=== PATIENT | female | born 1950 | race Caucasian/White ===

== ENCOUNTER 2018-07-10 08:02 | Outpatient (CLI) | payer MEDICARE ==
--- NOTE | 2018-07-10 08:53 | MMO ---
Bilateral MAMMO Bilat Screen [facility]. CLINICAL HISTORY: Patient is 67 years old and is seen for screening. The patient has no family history of breast cancer. The patient has no personal history of cancer. VIEWS: The views performed were: bilateral craniocaudal with tomosynthesis and bilateral mediolateral oblique with tomosynthesis. MAMMOGRAM FINDINGS: There are scattered fibroglandular densities. There are benign appearing calcifications seen in both breasts. There are no suspicious masses, suspicious calcifications, or new areas of architectural distortion. IMPRESSION: THERE IS NO MAMMOGRAPHIC EVIDENCE OF MALIGNANCY. A ROUTINE FOLLOW-UP MAMMOGRAM IN 1 YEAR IS RECOMMENDED. THE RESULTS OF THIS EXAM WERE SENT TO THE PATIENT. ACR BI-RADS Category 2 - Benign finding MAMMOGRAPHY NOTE: 1. A negative mammogram report should not delay a biopsy if a dominant of clinically suspicious mass is present. 2. Approximately 10% to 15% of breast cancers are not detected by mammography. 3. Adenosis and dense breasts may obscure an underlying neoplasm.
--- NOTE | 2018-07-10 09:15 | BD ---
BONE DENSITOMETRY USING DEXA: Date: 07/10/18 HISTORY: Postmenopausal screening for osteoporosis. FINDINGS: Lumbar Spine: BMD (g/cm2) L1 0.998 T-Score: 0.1 Z-Score: 1.9 L2 1.045 T-Score: 0.2 Z-Score: 2.1 L3 1.213 T-Score: 1.2 Z-Score: 3.3 L4 1.062 T-Score: 0.9 Z-Score: 2.2 L1-L4 1.081 T-Score: 0.3 Z-Score: 2.3 Femoral Neck: 0.753 T-Score: -0.9 Z-Score: 0.9 Total Femur: 1.054 T-Score: 0.9 Z-Score: 2.3 IMPRESSION: Normal bone mineral density. No evidence of osteopenia/osteoporosis. POS: [facility]
== END 2018-07-10 08:03 | disposition home or self-care (01) ==
LOC: BICMAMMO 08:02
PROVIDERS: ATTEND Family Medicine
DX: Z12.31 Encounter for screening mammogram for malignant neoplasm of breast (principal); Z13.820 Encounter for screening for osteoporosis; Z78.0 Asymptomatic menopausal state
CPT/HCPCS: 77063; 77067; 77080

== ENCOUNTER 2020-10-13 12:48 | Inpatient (IN) | payer MEDICARE ==
[2020-10-13 14:09] LABS: #Lymphocytes 0.5 thou/uL (1.20-3.40); #Monocytes 0.6 thou/uL (0.11-0.59); #Neutrophils 7.6 thou/uL (1.40-6.50); %Basophils 0.2 % (0.0-1.0); %Eosinophils 0.2 % (0.0-10.0); %Lymphocytes 6.1 % (21.0-51.0); %Monocytes 6.9 % (0.0-10.0); %Neutrophils 86.6 % (42.0-75.0); Hemoglobin 13.3 g/dL (12.0-16.0); Mean Corpuscular HGB CONC 34.7 g/dL (32.0-36.0); Mean Corpuscular Volume 80.9 fL (78.0-98.0); Platelet Count 251 thou/uL (130-400); RBC Distribution Width 12.3 % (11.5-14.5); Red Blood Cell (RBC) Count 4.74 mill/uL (4.20-5.40); White Blood Cell (WBC) Count 8.7 thou/uL (4.8-10.8)
[2020-10-13 14:58] LABS: ALT (SGPT) 75 U/L (8-55); AST (SGOT) 112 U/L (5-34); Albumin 3.6 g/dL (3.4-4.8); Alkaline Phosphatase 65 U/L (40-110); Anion Gap 18 mmol/L (10-20); BUN (Urea Nitrogen) 12 mg/dL (9.8-20.1); Bilirubin, Total 1.1 mg/dL (0.2-1.2); Calc. Creatinine Clearance 0 mL/min (70-130); Calcium 8.4 mg/dL (7.8-10.44); Carbon Dioxide 17 mmol/L (23-31); Chloride 80 mmol/L (98-107); Globulin 2.5 g/dL (2.4-3.5); Glucose 136 mg/dL (80-115); Potassium 3.3 mmol/L (3.5-5.1); Protein, Total 6.1 g/dL (5.8-8.1)
[2020-10-13 15:06] LABS: Sodium 112 mmol/L (136-145)
[2020-10-13] MEDS ORDERED: Potassium Chloride 20 MEQ TAB ONE ×2 (15:13→15:14)
[2020-10-13] MEDS ORDERED: Dexamethasone 10 MG/ML VIAL ONE (15:15)
[2020-10-13 16:00] LABS: SARS-CoV-2 NAA Rapid Test DETECTED (NotDetected)
[2020-10-13] MEDS ORDERED: Ondansetron PF 4 MG/2 ML Vial IVP PRN (19:17)
[2020-10-13] MEDS ORDERED: Ondansetron ODT 4 MG TAB PO PRN (19:17)
[2020-10-13] MEDS ORDERED: Enoxaparin Sodium 40 MG/0.4 ML SYRINGE SC SCH (19:30)
[2020-10-13] MEDS ORDERED: Sodium Chloride 3% 100 ML IVPB SCH (20:15)
[2020-10-13] MEDS ORDERED: Azithromycin 500 MG in Sodium Chloride 0.9% 250 ML 250 ML IVPB SCH (20:30)
[2020-10-13 20:31] LABS: Anion Gap 17 mmol/L (10-20); BUN (Urea Nitrogen) 9 mg/dL (9.8-20.1); Calc. Creatinine Clearance 0 mL/min (70-130); Calcium 8.2 mg/dL (7.8-10.44); Carbon Dioxide 18 mmol/L (23-31); Chloride 81 mmol/L (98-107); Glucose 102 mg/dL (80-115); Magnesium 1.7 mg/dL (1.6-2.6); Phosphorus 2.5 mg/dL (2.3-4.7); Potassium 3.5 mmol/L (3.5-5.1)
[2020-10-13] MEDS ORDERED: Azithromycin 500 MG VIAL ONE (20:34)
[2020-10-13] MEDS ORDERED: Famotidine 20 MG TAB ONE (20:34)
[2020-10-13] MEDS: Famotidine 20 MG TAB PO SCH (20:38)
[2020-10-13] MEDS: Famotidine/PF 20 mg/2ml Vial SLOW IVP SCH (20:39)
[2020-10-13 20:41] LABS: Sodium 112 mmol/L (136-145)
[2020-10-13] MEDS: Melatonin 3 MG TAB PO SCH (20:42)
[2020-10-13 22:17] LABS: Anion Gap 14 mmol/L (10-20); BUN (Urea Nitrogen) 11 mg/dL (9.8-20.1); Calc. Creatinine Clearance 0 mL/min (70-130); Carbon Dioxide 19 mmol/L (23-31); Chloride 83 mmol/L (98-107); Glucose 138 mg/dL (80-115); Potassium 3.3 mmol/L (3.5-5.1)
[2020-10-13 22:25] LABS: Sodium 113 mmol/L (136-145)
[2020-10-13] MEDS: Potassium Chloride 20 MEQ in Premix Bag 1 BAG IVPB SCH (22:53)
[2020-10-14] MEDS: Potassium Chloride 20 MEQ in Premix Bag 1 BAG IVPB SCH (00:15)
[2020-10-14 00:53] LABS: Bilirubin Negative (Negative); Blood, Urine Negative (Negative); Clarity Clear (Clear); Glucose, Urine (Dipstick) Normal (Negative); Ketone, Urine 20 mg/dL (Negative); Leukocyte 75 Leu/uL (Negative); Nitrite Negative (Negative); Protein, Urine (Dipstick) 20 mg/dL (Neg-Trace); RBC/HPF 0-3 HPF (0-3); Specific Gravity, Urine 1.016 (1.002-1.036); Squamous Epithelial 0-3 HPF (0-3); Urobilinogen Normal mg/dL (Less than 2)
[2020-10-14 00:54] LABS: Bacteria/HPF Rare-Few HPF (None Seen)
[2020-10-14 01:06] LABS: Anion Gap 14 mmol/L (10-20); BUN (Urea Nitrogen) 10 mg/dL (9.8-20.1); Calc. Creatinine Clearance 107 mL/min (70-130); Calcium 8.2 mg/dL (7.8-10.44); Carbon Dioxide 20 mmol/L (23-31); Chloride 84 mmol/L (98-107); Glucose 105 mg/dL (80-115); Potassium 3.7 mmol/L (3.5-5.1)
[2020-10-14 01:10] LABS: Sodium 114 mmol/L (136-145)
[2020-10-14 04:23] LABS: ALT (SGPT) 65 U/L (8-55); AST (SGOT) 90 U/L (5-34); Albumin 3.1 g/dL (3.4-4.8); Alkaline Phosphatase 66 U/L (40-110); Anion Gap 14 mmol/L (10-20); BUN (Urea Nitrogen) 9 mg/dL (9.8-20.1); Bilirubin, Total 0.9 mg/dL (0.2-1.2); Calc. Creatinine Clearance 104 mL/min (70-130); Calcium 8.4 mg/dL (7.8-10.44); Carbon Dioxide 20 mmol/L (23-31); Chloride 87 mmol/L (98-107); Globulin 2.7 g/dL (2.4-3.5); Glucose 99 mg/dL (80-115); Potassium 3.7 mmol/L (3.5-5.1); Protein, Total 5.8 g/dL (5.8-8.1)
[2020-10-14 04:27] LABS: Sodium 117 mmol/L (136-145)
[2020-10-14 04:36] LABS: Band 6 % (5-11); Hemoglobin 12.7 g/dL (12.0-16.0); Lymphocytes 9 % (21-51); MDiff Complete? YES; Mean Corpuscular HGB CONC 34.9 g/dL (32.0-36.0); Mean Corpuscular Hemoglobin 28.4 pg (27.0-31.0); Mean Corpuscular Volume 81.4 fL (78.0-98.0); Mean Platelet Volume 8.1 fL (7.4-10.4); Monocytes 5 % (0-10); Neutrophil 80 % (42-75); Platelet Count 232 thou/uL (130-400); RBC Distribution Width 12.4 % (11.5-14.5); Red Blood Cell (RBC) Count 4.48 mill/uL (4.20-5.40); White Blood Cell (WBC) Count 7.4 thou/uL (4.8-10.8)
[2020-10-14] MEDS ORDERED: Sodium Chloride 1 GM TAB PO SCH (09:00)
[2020-10-14] MEDS ORDERED: cefTRIAXone\\ROCEPHIN 1 GM in Sodium Chloride 0.9% 100 ML IVPB SCH (09:00)
[2020-10-14] MEDS ORDERED: Torsemide 10 MG TAB PO SCH (09:00)
[2020-10-14 09:08] LABS: Anion Gap 15 mmol/L (10-20); BUN (Urea Nitrogen) 8 mg/dL (9.8-20.1); Calc. Creatinine Clearance 106 mL/min (70-130); Calcium 8.4 mg/dL (7.8-10.44); Carbon Dioxide 20 mmol/L (23-31); Chloride 91 mmol/L (98-107); Glucose 98 mg/dL (80-115); Potassium 3.9 mmol/L (3.5-5.1); Sodium 122 mmol/L (136-145)
[2020-10-14] MEDS: Dexamethasone Sod Phosphate 8 MG in Sodium Chloride 0.9% 50 ML IVPB SCH (09:25)
[2020-10-14] MEDS: Famotidine 20 MG TAB PO SCH ×2 (09:26→20:50)
[2020-10-14] MEDS: Famotidine/PF 20 mg/2ml Vial SLOW IVP SCH ×2 (09:26→20:52)
[2020-10-14] MEDS: Enoxaparin Sodium 40 MG/0.4 ML SYRINGE SC SCH (09:27)
[2020-10-14] MEDS ORDERED: Dextrose 5% in Water 1,000 ML IV SCH ×3 (09:30→14:30)
[2020-10-14 12:39] LABS: Anion Gap 16 mmol/L (10-20); BUN (Urea Nitrogen) 8 mg/dL (9.8-20.1); Calc. Creatinine Clearance 96 mL/min (70-130); Calcium 8.6 mg/dL (7.8-10.44); Carbon Dioxide 19 mmol/L (23-31); Chloride 93 mmol/L (98-107); Glucose 133 mg/dL (80-115); Potassium 3.9 mmol/L (3.5-5.1); Sodium 124 mmol/L (136-145)
[2020-10-14 16:32] LABS: Anion Gap 14 mmol/L (10-20); BUN (Urea Nitrogen) 9 mg/dL (9.8-20.1); Calc. Creatinine Clearance 90 mL/min (70-130); Calcium 8.5 mg/dL (7.8-10.44); Carbon Dioxide 20 mmol/L (23-31); Chloride 93 mmol/L (98-107); Glucose 191 mg/dL (80-115); Potassium 3.8 mmol/L (3.5-5.1); Sodium 123 mmol/L (136-145)
[2020-10-14 20:35] LABS: Anion Gap 14 mmol/L (10-20); BUN (Urea Nitrogen) 10 mg/dL (9.8-20.1); Calc. Creatinine Clearance 89 mL/min (70-130); Calcium 8.7 mg/dL (7.8-10.44); Carbon Dioxide 22 mmol/L (23-31); Chloride 94 mmol/L (98-107); Glucose 144 mg/dL (80-115); Potassium 3.9 mmol/L (3.5-5.1); Sodium 126 mmol/L (136-145)
[2020-10-14] MEDS: Melatonin 3 MG TAB PO SCH (20:50)
[2020-10-15 01:11] LABS: Anion Gap 14 mmol/L (10-20); BUN (Urea Nitrogen) 9 mg/dL (9.8-20.1); Calc. Creatinine Clearance 96 mL/min (70-130); Calcium 8.6 mg/dL (7.8-10.44); Carbon Dioxide 22 mmol/L (23-31); Chloride 96 mmol/L (98-107); Glucose 131 mg/dL (80-115); Potassium 3.9 mmol/L (3.5-5.1); Sodium 128 mmol/L (136-145)
[2020-10-15 03:45] LABS: Band 1 % (5-11); Hemoglobin 12.8 g/dL (12.0-16.0); Lymphocytes 12 % (21-51); MDiff Complete? YES; Mean Corpuscular HGB CONC 34.6 g/dL (32.0-36.0); Mean Corpuscular Hemoglobin 28.7 pg (27.0-31.0); Mean Corpuscular Volume 83.1 fL (78.0-98.0); Mean Platelet Volume 8.2 fL (7.4-10.4); Monocytes 4 % (0-10); Neutrophil 83 % (42-75); Platelet Count 259 thou/uL (130-400); Platelet Morphology Comment Appears Adequate; RBC Distribution Width 12.9 % (11.5-14.5); Red Blood Cell (RBC) Count 4.47 mill/uL (4.20-5.40); White Blood Cell (WBC) Count 5.2 thou/uL (4.8-10.8)
[2020-10-15 03:57] LABS: ALT (SGPT) 60 U/L (8-55); AST (SGOT) 55 U/L (5-34); Albumin 3.2 g/dL (3.4-4.8); Alkaline Phosphatase 77 U/L (40-110); Anion Gap 13 mmol/L (10-20); BUN (Urea Nitrogen) 10 mg/dL (9.8-20.1); Bilirubin, Total 0.6 mg/dL (0.2-1.2); Calc. Creatinine Clearance 94 mL/min (70-130); Calcium 8.7 mg/dL (7.8-10.44); Carbon Dioxide 23 mmol/L (23-31); Chloride 97 mmol/L (98-107); Glucose 117 mg/dL (80-115); Potassium 3.8 mmol/L (3.5-5.1); Protein, Total 6.2 g/dL (5.8-8.1); Sodium 129 mmol/L (136-145)
[2020-10-15] MEDS: Famotidine 20 MG TAB PO SCH ×2 (08:05→20:28)
[2020-10-15] MEDS: Ascorbic Acid 500 mg Chewable Tablet PO SCH (08:05)
[2020-10-15] MEDS: Famotidine/PF 20 mg/2ml Vial SLOW IVP SCH ×2 (08:05→20:29)
[2020-10-15] MEDS: Enoxaparin Sodium 40 MG/0.4 ML SYRINGE SC SCH (08:05)
[2020-10-15] MEDS: Cholecalciferol (Vitamin D3) 400 UNITS TAB PO SCH (08:05)
[2020-10-15] MEDS: Dexamethasone Sod Phosphate 8 MG in Sodium Chloride 0.9% 50 ML IVPB SCH (08:05)
[2020-10-15] MEDS: Zinc Sulfate 220 MG CAP PO SCH (08:05)
[2020-10-15 15:32] LABS: Anion Gap 14 mmol/L (10-20); BUN (Urea Nitrogen) 11 mg/dL (9.8-20.1); Calc. Creatinine Clearance 91 mL/min (70-130); Calcium 8.7 mg/dL (7.8-10.44); Carbon Dioxide 22 mmol/L (23-31); Chloride 98 mmol/L (98-107); Glucose 176 mg/dL (80-115); Potassium 3.7 mmol/L (3.5-5.1); Sodium 130 mmol/L (136-145)
[2020-10-15] MEDS ORDERED: PARoxetine 20 MG TAB PO SCH (18:15)
[2020-10-15] MEDS: Melatonin 3 MG TAB PO SCH (20:29)
[2020-10-15] MEDS: Benzonatate 100 MG CAP PO PRN (21:25)
[2020-10-15] MEDS: Guaifenesin DM 100-10/5 ML UDCUP PO PRN (21:25)
[2020-10-16] MEDS: Guaifenesin DM 100-10/5 ML UDCUP PO PRN ×3 (04:45→17:09)
[2020-10-16] MEDS: Benzonatate 100 MG CAP PO PRN ×3 (04:46→21:46)
[2020-10-16 06:11] LABS: Eosinophils 1 % (0-10); Hemoglobin 12.8 g/dL (12.0-16.0); Lymphocytes 11 % (21-51); MDiff Complete? YES; Mean Corpuscular HGB CONC 34.9 g/dL (32.0-36.0); Mean Corpuscular Hemoglobin 29.3 pg (27.0-31.0); Mean Corpuscular Volume 83.9 fL (78.0-98.0); Mean Platelet Volume 7.7 fL (7.4-10.4); Monocytes 12 % (0-10); Neutrophil 76 % (42-75); Platelet Count 344 thou/uL (130-400); Platelet Morphology Comment Appears Adequate; RBC Distribution Width 12.8 % (11.5-14.5); Red Blood Cell (RBC) Count 4.36 mill/uL (4.20-5.40); White Blood Cell (WBC) Count 8.5 thou/uL (4.8-10.8)
[2020-10-16 06:23] LABS: ALT (SGPT) 72 U/L (8-55); AST (SGOT) 54 U/L (5-34); Albumin 3.4 g/dL (3.4-4.8); Alkaline Phosphatase 100 U/L (40-110); Anion Gap 12 mmol/L (10-20); BUN (Urea Nitrogen) 10 mg/dL (9.8-20.1); Bilirubin, Total 0.7 mg/dL (0.2-1.2); Calc. Creatinine Clearance 101 mL/min (70-130); Calcium 8.6 mg/dL (7.8-10.44); Carbon Dioxide 24 mmol/L (23-31); Chloride 98 mmol/L (98-107); Globulin 2.8 g/dL (2.4-3.5); Glucose 130 mg/dL (80-115); Potassium 3.5 mmol/L (3.5-5.1); Protein, Total 6.2 g/dL (5.8-8.1); Sodium 130 mmol/L (136-145)
[2020-10-16] MEDS: Dexamethasone Sod Phosphate 8 MG in Sodium Chloride 0.9% 50 ML IVPB SCH (07:59)
[2020-10-16] MEDS: Zinc Sulfate 220 MG CAP PO SCH (07:59)
[2020-10-16] MEDS: Ascorbic Acid 500 mg Chewable Tablet PO SCH (07:59)
[2020-10-16] MEDS: Famotidine/PF 20 mg/2ml Vial SLOW IVP SCH ×2 (08:00→21:46)
[2020-10-16] MEDS: Enoxaparin Sodium 40 MG/0.4 ML SYRINGE SC SCH (08:00)
[2020-10-16] MEDS: Famotidine 20 MG TAB PO SCH ×2 (08:00→21:46)
[2020-10-16] MEDS: Cholecalciferol (Vitamin D3) 400 UNITS TAB PO SCH (08:00)
[2020-10-16] MEDS: PARoxetine 20 MG TAB PO SCH (08:00)
[2020-10-16] MEDS: Losartan 25 MG TAB PO SCH (08:54)
[2020-10-16] MEDS ORDERED: NIFEdipine XL 60 MG TAB PO SCH ×2 (13:36→13:45)
[2020-10-16] MEDS ORDERED: Potassium Chloride 20 MEQ TAB PO SCH (13:45)
[2020-10-16] MEDS: hydrALAZINE 20 MG/ML VIAL SLOW IVP PRN (17:16)
[2020-10-16] MEDS: Melatonin 3 MG TAB PO SCH (21:46)
[2020-10-17] MEDS: hydrALAZINE 20 MG/ML VIAL SLOW IVP PRN (05:32)
[2020-10-17 06:47] LABS: Hemoglobin 13.4 g/dL (12.0-16.0); Lymphocytes 8 % (21-51); MDiff Complete? YES; Mean Corpuscular HGB CONC 33.7 g/dL (32.0-36.0); Mean Corpuscular Hemoglobin 28.4 pg (27.0-31.0); Mean Corpuscular Volume 84.1 fL (78.0-98.0); Mean Platelet Volume 7.1 fL (7.4-10.4); Metamyelocyte 2 % (0-0); Monocytes 8 % (0-10); Neutrophil 82 % (42-75); Platelet Count 441 thou/uL (130-400); Platelet Morphology Comment Appears Increased; RBC Distribution Width 12.8 % (11.5-14.5); Red Blood Cell (RBC) Count 4.71 mill/uL (4.20-5.40); White Blood Cell (WBC) Count 12.9 thou/uL (4.8-10.8)
[2020-10-17 07:03] LABS: ALT (SGPT) 94 U/L (8-55); AST (SGOT) 51 U/L (5-34); Albumin 3.4 g/dL (3.4-4.8); Alkaline Phosphatase 109 U/L (40-110); Anion Gap 14 mmol/L (10-20); BUN (Urea Nitrogen) 8 mg/dL (9.8-20.1); Bilirubin, Total 0.8 mg/dL (0.2-1.2); Calc. Creatinine Clearance 109 mL/min (70-130); Calcium 8.8 mg/dL (7.8-10.44); Carbon Dioxide 22 mmol/L (23-31); Chloride 97 mmol/L (98-107); Globulin 3.1 g/dL (2.4-3.5); Glucose 137 mg/dL (80-115); Potassium 3.9 mmol/L (3.5-5.1); Protein, Total 6.5 g/dL (5.8-8.1); Sodium 129 mmol/L (136-145)
[2020-10-17 07:07] LABS: Phosphorus 2.4 mg/dL (2.3-4.7)
[2020-10-17] MEDS: Cholecalciferol (Vitamin D3) 400 UNITS TAB PO SCH (08:31)
[2020-10-17] MEDS: Losartan 25 MG TAB PO SCH (08:31)
[2020-10-17] MEDS: Famotidine 20 MG TAB PO SCH ×2 (08:31→22:08)
[2020-10-17] MEDS: Dexamethasone Sod Phosphate 8 MG in Sodium Chloride 0.9% 50 ML IVPB SCH (08:31)
[2020-10-17] MEDS: Bisacodyl 5 MG TAB PO PRN (08:31)
[2020-10-17] MEDS: Zinc Sulfate 220 MG CAP PO SCH (08:32)
[2020-10-17] MEDS: Ascorbic Acid 500 mg Chewable Tablet PO SCH (08:32)
[2020-10-17] MEDS: Guaifenesin DM 100-10/5 ML UDCUP PO PRN (08:32)
[2020-10-17] MEDS: Enoxaparin Sodium 40 MG/0.4 ML SYRINGE SC SCH (08:32)
[2020-10-17] MEDS: Famotidine/PF 20 mg/2ml Vial SLOW IVP SCH ×2 (08:32→22:08)
[2020-10-17] MEDS: Benzonatate 100 MG CAP PO PRN (08:32)
[2020-10-17] MEDS: PARoxetine 20 MG TAB PO SCH (08:32)
[2020-10-17] MEDS ORDERED: NIFEdipine XL 60 MG TAB PO SCH (09:00)
[2020-10-17] MEDS: NIFEdipine XL 90 MG TAB PO SCH (09:07)
[2020-10-17 14:27] LABS: Anion Gap 14 mmol/L (10-20); BUN (Urea Nitrogen) 11 mg/dL (9.8-20.1); Calc. Creatinine Clearance 93 mL/min (70-130); Calcium 9.4 mg/dL (7.8-10.44); Carbon Dioxide 22 mmol/L (23-31); Chloride 96 mmol/L (98-107); Glucose 209 mg/dL (80-115); Potassium 4.3 mmol/L (3.5-5.1); Sodium 128 mmol/L (136-145)
[2020-10-17] MEDS: Sodium Chloride 1 GM TAB PO SCH ×2 (15:51→22:08)
[2020-10-17] MEDS: Zolpidem Tartrate 5 MG TAB PO SCH (22:08)
[2020-10-18 07:13] LABS: ALT (SGPT) 78 U/L (8-55); AST (SGOT) 38 U/L (5-34); Albumin 3.2 g/dL (3.4-4.8); Alkaline Phosphatase 99 U/L (40-110); Anion Gap 13 mmol/L (10-20); BUN (Urea Nitrogen) 16 mg/dL (9.8-20.1); Bilirubin, Total 0.7 mg/dL (0.2-1.2); Calc. Creatinine Clearance 86 mL/min (70-130); Carbon Dioxide 20 mmol/L (23-31); Chloride 101 mmol/L (98-107); Globulin 2.6 g/dL (2.4-3.5); Glucose 106 mg/dL (80-115); Potassium 4.3 mmol/L (3.5-5.1); Protein, Total 5.8 g/dL (5.8-8.1); Sodium 130 mmol/L (136-145)
[2020-10-18 07:25] LABS: Hemoglobin 12.8 g/dL (12.0-16.0); Mean Corpuscular HGB CONC 32.3 g/dL (32.0-36.0); Mean Corpuscular Hemoglobin 27.4 pg (27.0-31.0); Mean Corpuscular Volume 84.8 fL (78.0-98.0); Mean Platelet Volume 6.7 fL (7.4-10.4); Platelet Count 466 thou/uL (130-400); RBC Distribution Width 13.2 % (11.5-14.5); Red Blood Cell (RBC) Count 4.69 mill/uL (4.20-5.40); White Blood Cell (WBC) Count 13.1 thou/uL (4.8-10.8)
[2020-10-18 09:39] LABS: Band 6 % (5-11); Lymphocytes 16 % (21-51); Monocytes 15 % (0-10); Neutrophil 63 % (42-75)
[2020-10-18] MEDS: Enoxaparin Sodium 40 MG/0.4 ML SYRINGE SC SCH (09:43)
[2020-10-18] MEDS: Dexamethasone Sod Phosphate 8 MG in Sodium Chloride 0.9% 50 ML IVPB SCH (09:43)
[2020-10-18] MEDS: Zinc Sulfate 220 MG CAP PO SCH (09:44)
[2020-10-18] MEDS: Cholecalciferol (Vitamin D3) 400 UNITS TAB PO SCH (09:44)
[2020-10-18] MEDS: Sodium Chloride 1 GM TAB PO SCH ×3 (09:44→20:45)
[2020-10-18] MEDS: Losartan 25 MG TAB PO SCH (09:44)
[2020-10-18] MEDS: NIFEdipine XL 90 MG TAB PO SCH (09:44)
[2020-10-18] MEDS: Famotidine 20 MG TAB PO SCH ×2 (09:44→20:45)
[2020-10-18] MEDS: Ascorbic Acid 500 mg Chewable Tablet PO SCH (09:44)
[2020-10-18 09:45] LABS: Platelet Morphology Comment Appears Increased
[2020-10-18] MEDS: Famotidine/PF 20 mg/2ml Vial SLOW IVP SCH ×2 (09:45→20:45)
[2020-10-18 09:46] LABS: MDiff Complete? YES
[2020-10-18] MEDS ORDERED: Bisacodyl 5 MG TAB PO SCH (12:45)
[2020-10-18] MEDS: Zolpidem Tartrate 5 MG TAB PO SCH (20:45)
[2020-10-19 06:31] LABS: ALT (SGPT) 88 U/L (8-55); AST (SGOT) 40 U/L (5-34); Albumin 3.2 g/dL (3.4-4.8); Alkaline Phosphatase 129 U/L (40-110); Anion Gap 13 mmol/L (10-20); BUN (Urea Nitrogen) 21 mg/dL (9.8-20.1); Band 2 % (5-11); Bilirubin, Total 0.5 mg/dL (0.2-1.2); Calc. Creatinine Clearance 93 mL/min (70-130); Calcium 8.7 mg/dL (7.8-10.44); Carbon Dioxide 22 mmol/L (23-31); Chloride 106 mmol/L (98-107); Globulin 2.6 g/dL (2.4-3.5); Glucose 99 mg/dL (80-115); Hemoglobin 12.8 g/dL (12.0-16.0); Lymphocytes 12 % (21-51); MDiff Complete? YES; Mean Corpuscular HGB CONC 33.6 g/dL (32.0-36.0); Mean Corpuscular Hemoglobin 28.7 pg (27.0-31.0); Mean Corpuscular Volume 85.5 fL (78.0-98.0); Mean Platelet Volume 6.7 fL (7.4-10.4); Metamyelocyte 3 % (0-0); Monocytes 11 % (0-10); Neutrophil 71 % (42-75); Platelet Count 425 thou/uL (130-400); Platelet Morphology Comment Appears Increased; Potassium 4.2 mmol/L (3.5-5.1); Protein, Total 5.8 g/dL (5.8-8.1); RBC Distribution Width 13.3 % (11.5-14.5); Reactive Lymphocytes 1 % (0-10); Red Blood Cell (RBC) Count 4.45 mill/uL (4.20-5.40); Sodium 137 mmol/L (136-145); White Blood Cell (WBC) Count 12.1 thou/uL (4.8-10.8)
[2020-10-19] MEDS: NIFEdipine XL 90 MG TAB PO SCH (08:25)
[2020-10-19] MEDS: Ascorbic Acid 500 mg Chewable Tablet PO SCH (08:26)
[2020-10-19] MEDS: Sodium Chloride 1 GM TAB PO SCH ×3 (08:26→22:32)
[2020-10-19] MEDS: Enoxaparin Sodium 40 MG/0.4 ML SYRINGE SC SCH (08:26)
[2020-10-19] MEDS: Losartan 25 MG TAB PO SCH (08:26)
[2020-10-19] MEDS: Zinc Sulfate 220 MG CAP PO SCH (08:27)
[2020-10-19] MEDS: Cholecalciferol (Vitamin D3) 400 UNITS TAB PO SCH (08:27)
[2020-10-19] MEDS: Dexamethasone Sod Phosphate 8 MG in Sodium Chloride 0.9% 50 ML IVPB SCH (08:28)
[2020-10-19] MEDS: Famotidine/PF 20 mg/2ml Vial SLOW IVP SCH ×2 (08:30→22:32)
[2020-10-19] MEDS: Famotidine 20 MG TAB PO SCH ×2 (08:30→22:32)
[2020-10-19] MEDS ORDERED: NIFEdipine XL 60 MG TAB PO SCH (09:00)
[2020-10-19] MEDS ORDERED: NIFEdipine XL 30 MG TAB PO SCH (11:30)
[2020-10-19] MEDS: Zolpidem Tartrate 5 MG TAB PO SCH (22:32)
[2020-10-20 06:51] LABS: Mean Corpuscular HGB CONC 32.2 g/dL (32.0-36.0); Mean Corpuscular Hemoglobin 27.7 pg (27.0-31.0); Mean Platelet Volume 6.7 fL (7.4-10.4); Platelet Count 394 thou/uL (130-400); RBC Distribution Width 13.5 % (11.5-14.5); Red Blood Cell (RBC) Count 4.32 mill/uL (4.20-5.40); White Blood Cell (WBC) Count 13.4 thou/uL (4.8-10.8)
[2020-10-20 07:01] LABS: ALT (SGPT) 87 U/L (8-55); AST (SGOT) 39 U/L (5-34); Alkaline Phosphatase 139 U/L (40-110); Anion Gap 11 mmol/L (10-20); BUN (Urea Nitrogen) 18 mg/dL (9.8-20.1); Bilirubin, Total 0.5 mg/dL (0.2-1.2); Calc. Creatinine Clearance 101 mL/min (70-130); Calcium 8.3 mg/dL (7.8-10.44); Carbon Dioxide 23 mmol/L (23-31); Chloride 105 mmol/L (98-107); Globulin 2.5 g/dL (2.4-3.5); Glucose 93 mg/dL (80-115); Potassium 4.3 mmol/L (3.5-5.1); Protein, Total 5.5 g/dL (5.8-8.1); Sodium 135 mmol/L (136-145)
[2020-10-20] MEDS ORDERED: Magnesium Citrate 300 ML BOT PO SCH (07:45)
[2020-10-20 09:38] LABS: Band 2 % (5-11); Lymphocytes 29 % (21-51); Monocytes 9 % (0-10); Neutrophil 60 % (42-75)
[2020-10-20 09:39] LABS: MDiff Complete? YES; Platelet Morphology Comment Appears Adequate; Polychromasia SLIGHT = 2-3 cells (100X) (0-2/hpf)
[2020-10-20] MEDS: NIFEdipine XL 60 MG TAB PO SCH (10:05)
[2020-10-20] MEDS: Losartan 25 MG TAB PO SCH (10:06)
[2020-10-20] MEDS: Ascorbic Acid 500 mg Chewable Tablet PO SCH (10:06)
[2020-10-20] MEDS: Cholecalciferol (Vitamin D3) 400 UNITS TAB PO SCH (10:06)
[2020-10-20] MEDS: Famotidine/PF 20 mg/2ml Vial SLOW IVP SCH ×2 (10:07→20:29)
[2020-10-20] MEDS: Enoxaparin Sodium 40 MG/0.4 ML SYRINGE SC SCH (10:07)
[2020-10-20] MEDS: Dexamethasone Sod Phosphate 8 MG in Sodium Chloride 0.9% 50 ML IVPB SCH (10:07)
[2020-10-20] MEDS: Sodium Chloride 1 GM TAB PO SCH ×3 (10:07→20:31)
[2020-10-20] MEDS: Famotidine 20 MG TAB PO SCH ×2 (10:07→20:31)
[2020-10-20] MEDS: Zinc Sulfate 220 MG CAP PO SCH (10:07)
[2020-10-20] MEDS: Zolpidem Tartrate 5 MG TAB PO SCH (20:32)
[2020-10-21 06:46] LABS: Hemoglobin 11.6 g/dL (12.0-16.0); Mean Corpuscular HGB CONC 32.6 g/dL (32.0-36.0); Mean Corpuscular Hemoglobin 28.2 pg (27.0-31.0); Mean Corpuscular Volume 86.5 fL (78.0-98.0); Mean Platelet Volume 6.8 fL (7.4-10.4); Platelet Count 395 thou/uL (130-400); RBC Distribution Width 13.4 % (11.5-14.5); Red Blood Cell (RBC) Count 4.13 mill/uL (4.20-5.40); White Blood Cell (WBC) Count 14.2 thou/uL (4.8-10.8)
[2020-10-21 07:06] LABS: ALT (SGPT) 68 U/L (8-55); AST (SGOT) 21 U/L (5-34); Alkaline Phosphatase 127 U/L (40-110); Anion Gap 11 mmol/L (10-20); BUN (Urea Nitrogen) 18 mg/dL (9.8-20.1); Bilirubin, Total 0.4 mg/dL (0.2-1.2); Calc. Creatinine Clearance 103 mL/min (70-130); Calcium 8.3 mg/dL (7.8-10.44); Carbon Dioxide 25 mmol/L (23-31); Chloride 107 mmol/L (98-107); Globulin 2.4 g/dL (2.4-3.5); Glucose 107 mg/dL (80-115); Potassium 4.9 mmol/L (3.5-5.1); Protein, Total 5.4 g/dL (5.8-8.1); Sodium 138 mmol/L (136-145)
[2020-10-21] MEDS: Cholecalciferol (Vitamin D3) 400 UNITS TAB PO SCH (07:46)
[2020-10-21] MEDS: NIFEdipine XL 60 MG TAB PO SCH (07:46)
[2020-10-21] MEDS: Zinc Sulfate 220 MG CAP PO SCH (07:46)
[2020-10-21] MEDS: Famotidine 20 MG TAB PO SCH ×2 (07:47→20:09)
[2020-10-21] MEDS: Sodium Chloride 1 GM TAB PO SCH ×3 (07:47→20:09)
[2020-10-21] MEDS: Ascorbic Acid 500 mg Chewable Tablet PO SCH (07:47)
[2020-10-21] MEDS: Losartan 25 MG TAB PO SCH (07:47)
[2020-10-21] MEDS: Enoxaparin Sodium 40 MG/0.4 ML SYRINGE SC SCH (07:48)
[2020-10-21] MEDS: Dexamethasone Sod Phosphate 8 MG in Sodium Chloride 0.9% 50 ML IVPB SCH (07:48)
[2020-10-21] MEDS: Famotidine/PF 20 mg/2ml Vial SLOW IVP SCH ×2 (07:51→20:09)
[2020-10-21 09:01] LABS: Band 1 % (5-11); Lymphocytes 14 % (21-51); MDiff Complete? YES; Monocytes 14 % (0-10); Neutrophil 67 % (42-75); Platelet Morphology Comment Appears Adequate; RBC Morphology Normal; Reactive Lymphocytes 4 % (0-10)
[2020-10-21] MEDS: Zolpidem Tartrate 5 MG TAB PO SCH (22:19)
[2020-10-22] MEDS: NIFEdipine XL 60 MG TAB PO SCH (09:11)
[2020-10-22] MEDS: Cholecalciferol (Vitamin D3) 400 UNITS TAB PO SCH (09:11)
[2020-10-22] MEDS: Ascorbic Acid 500 mg Chewable Tablet PO SCH (09:12)
[2020-10-22] MEDS: Losartan 25 MG TAB PO SCH (09:12)
[2020-10-22] MEDS: Zinc Sulfate 220 MG CAP PO SCH (09:12)
[2020-10-22] MEDS: Famotidine 20 MG TAB PO SCH ×2 (09:13→20:38)
[2020-10-22 09:44] LABS: ALT (SGPT) 67 U/L (8-55); AST (SGOT) 20 U/L (5-34); Albumin 3.5 g/dL (3.4-4.8); Alkaline Phosphatase 127 U/L (40-110); Anion Gap 15 mmol/L (10-20); BUN (Urea Nitrogen) 16 mg/dL (9.8-20.1); Bilirubin, Total 0.6 mg/dL (0.2-1.2); Calc. Creatinine Clearance 97 mL/min (70-130); Carbon Dioxide 21 mmol/L (23-31); Chloride 102 mmol/L (98-107); Glucose 164 mg/dL (80-115); Potassium 4.1 mmol/L (3.5-5.1); Protein, Total 6.5 g/dL (5.8-8.1); Sodium 134 mmol/L (136-145)
[2020-10-22 09:47] LABS: Hemoglobin 13.2 g/dL (12.0-16.0); Mean Corpuscular HGB CONC 33.1 g/dL (32.0-36.0); Mean Corpuscular Hemoglobin 28.3 pg (27.0-31.0); Mean Corpuscular Volume 85.4 fL (78.0-98.0); Mean Platelet Volume 6.6 fL (7.4-10.4); Platelet Count 477 thou/uL (130-400); RBC Distribution Width 13.4 % (11.5-14.5); Red Blood Cell (RBC) Count 4.66 mill/uL (4.20-5.40); White Blood Cell (WBC) Count 16.1 thou/uL (4.8-10.8)
[2020-10-22] MEDS: Enoxaparin Sodium 40 MG/0.4 ML SYRINGE SC SCH (09:53)
[2020-10-22] MEDS: Sodium Chloride 1 GM TAB PO SCH ×3 (10:13→20:38)
[2020-10-22] MEDS: Dexamethasone Sod Phosphate 8 MG in Sodium Chloride 0.9% 50 ML IVPB SCH (10:13)
[2020-10-22] MEDS: Famotidine/PF 20 mg/2ml Vial SLOW IVP SCH ×2 (10:26→20:31)
[2020-10-22 10:54] LABS: Lymphocytes 21 % (21-51); MDiff Complete? YES; Monocytes 6 % (0-10); Neutrophil 71 % (42-75); Platelet Morphology Comment Appears Increased; RBC Morphology Normal; Reactive Lymphocytes 2 % (0-10)
[2020-10-22] MEDS: Zolpidem Tartrate 5 MG TAB PO SCH (20:38)
[2020-10-22] MEDS: hydrALAZINE 20 MG/ML VIAL SLOW IVP PRN (20:39)
[2020-10-22] MEDS: Acetaminophen 325 MG/10.15 ML UDCUP PO PRN (21:59)
[2020-10-23 06:58] LABS: ALT (SGPT) 60 U/L (8-55); AST (SGOT) 21 U/L (5-34); Albumin 3.5 g/dL (3.4-4.8); Alkaline Phosphatase 130 U/L (40-110); Anion Gap 14 mmol/L (10-20); BUN (Urea Nitrogen) 18 mg/dL (9.8-20.1); Bilirubin, Total 0.5 mg/dL (0.2-1.2); Calc. Creatinine Clearance 103 mL/min (70-130); Calcium 8.9 mg/dL (7.8-10.44); Carbon Dioxide 20 mmol/L (23-31); Chloride 104 mmol/L (98-107); Globulin 3.1 g/dL (2.4-3.5); Glucose 109 mg/dL (80-115); Potassium 4.4 mmol/L (3.5-5.1); Protein, Total 6.6 g/dL (5.8-8.1); Sodium 134 mmol/L (136-145)
[2020-10-23 08:00] LABS: Hemoglobin 13.4 g/dL (12.0-16.0); Lymphocytes 21 % (21-51); MDiff Complete? YES; Mean Corpuscular HGB CONC 32.9 g/dL (32.0-36.0); Mean Corpuscular Hemoglobin 28.3 pg (27.0-31.0); Mean Corpuscular Volume 85.8 fL (78.0-98.0); Mean Platelet Volume 6.7 fL (7.4-10.4); Monocytes 10 % (0-10); Myelocyte 1 % (0-0); Neutrophil 68 % (42-75); Platelet Count 427 thou/uL (130-400); RBC Distribution Width 13.7 % (11.5-14.5); Red Blood Cell (RBC) Count 4.74 mill/uL (4.20-5.40); White Blood Cell (WBC) Count 15.2 thou/uL (4.8-10.8)
[2020-10-23] MEDS: Ascorbic Acid 500 mg Chewable Tablet PO SCH (08:00)
[2020-10-23] MEDS: Cholecalciferol (Vitamin D3) 400 UNITS TAB PO SCH (08:00)
[2020-10-23] MEDS: Famotidine 20 MG TAB PO SCH (08:00)
[2020-10-23] MEDS: NIFEdipine XL 60 MG TAB PO SCH (08:01)
[2020-10-23] MEDS: Losartan 25 MG TAB PO SCH (08:01)
[2020-10-23] MEDS: Sodium Chloride 1 GM TAB PO SCH (08:02)
[2020-10-23] MEDS: Zinc Sulfate 220 MG CAP PO SCH (08:02)
[2020-10-23] MEDS: Enoxaparin Sodium 40 MG/0.4 ML SYRINGE SC SCH (08:05)
[2020-10-23] MEDS: Famotidine/PF 20 mg/2ml Vial SLOW IVP SCH (08:15)
[2020-10-23] MEDS: Dexamethasone Sod Phosphate 8 MG in Sodium Chloride 0.9% 50 ML IVPB SCH (10:09)
[2020-10-23] MEDS: hydrALAZINE 20 MG/ML VIAL SLOW IVP PRN (20:35)
[2020-10-23] MEDS: Zolpidem Tartrate 5 MG TAB PO SCH (20:35)
[2020-10-23] MEDS: Bisacodyl 5 MG TAB PO PRN (20:56)
[2020-10-24 06:33] LABS: ALT (SGPT) 53 U/L (8-55); AST (SGOT) 18 U/L (5-34); Albumin 3.3 g/dL (3.4-4.8); Alkaline Phosphatase 98 U/L (40-110); Anion Gap 12 mmol/L (10-20); BUN (Urea Nitrogen) 21 mg/dL (9.8-20.1); Bilirubin, Total 0.5 mg/dL (0.2-1.2); Calc. Creatinine Clearance 106 mL/min (70-130); Calcium 8.7 mg/dL (7.8-10.44); Carbon Dioxide 21 mmol/L (23-31); Chloride 106 mmol/L (98-107); Globulin 2.7 g/dL (2.4-3.5); Glucose 108 mg/dL (80-115); Potassium 4.3 mmol/L (3.5-5.1); Sodium 135 mmol/L (136-145)
[2020-10-24 06:37] LABS: Band 2 % (5-11); Hemoglobin 12.8 g/dL (12.0-16.0); Lymphocytes 17 % (21-51); MDiff Complete? YES; Mean Corpuscular HGB CONC 33.8 g/dL (32.0-36.0); Mean Corpuscular Hemoglobin 29.3 pg (27.0-31.0); Mean Corpuscular Volume 86.7 fL (78.0-98.0); Mean Platelet Volume 6.9 fL (7.4-10.4); Monocytes 10 % (0-10); Neutrophil 71 % (42-75); Platelet Count 339 thou/uL (130-400); RBC Distribution Width 13.7 % (11.5-14.5); Red Blood Cell (RBC) Count 4.35 mill/uL (4.20-5.40); White Blood Cell (WBC) Count 14.7 thou/uL (4.8-10.8)
[2020-10-24] MEDS: NIFEdipine XL 60 MG TAB PO SCH (08:15)
[2020-10-24] MEDS: Labetalol 100 MG TAB PO SCH ×2 (08:16→20:36)
[2020-10-24] MEDS: Losartan 25 MG TAB PO SCH (08:17)
[2020-10-24] MEDS: Zinc Sulfate 220 MG CAP PO SCH (08:17)
[2020-10-24] MEDS: Bisacodyl 5 MG TAB PO PRN (08:19)
[2020-10-24] MEDS: Enoxaparin Sodium 40 MG/0.4 ML SYRINGE SC SCH (08:19)
[2020-10-24] MEDS: Cholecalciferol (Vitamin D3) 400 UNITS TAB PO SCH (08:19)
[2020-10-24] MEDS: Ascorbic Acid 500 mg Chewable Tablet PO SCH (09:15)
[2020-10-24] MEDS: Dexamethasone Sod Phosphate 8 MG in Sodium Chloride 0.9% 50 ML IVPB SCH (09:16)
[2020-10-24] MEDS ORDERED: Bisacodyl 10 MG SUPP PR PRN (14:03)
[2020-10-24] MEDS ORDERED: Bisacodyl 10 MG SUPP PR SCH (14:15)
[2020-10-24] MEDS: Zolpidem Tartrate 5 MG TAB PO SCH (20:36)
[2020-10-24] MEDS: Acetaminophen 325 MG/10.15 ML UDCUP PO PRN (21:30)
[2020-10-24] MEDS ORDERED: Pantoprazole 40 MG VIAL IVP SCH (23:30)
[2020-10-25 07:23] LABS: ALT (SGPT) 63 U/L (8-55); AST (SGOT) 30 U/L (5-34); Albumin 3.5 g/dL (3.4-4.8); Alkaline Phosphatase 99 U/L (40-110); Anion Gap 15 mmol/L (10-20); BUN (Urea Nitrogen) 31 mg/dL (9.8-20.1); Bilirubin, Total 0.6 mg/dL (0.2-1.2); Calc. Creatinine Clearance 97 mL/min (70-130); Calcium 8.7 mg/dL (7.8-10.44); Carbon Dioxide 17 mmol/L (23-31); Chloride 107 mmol/L (98-107); Globulin 2.8 g/dL (2.4-3.5); Glucose 112 mg/dL (80-115); Potassium 4.1 mmol/L (3.5-5.1); Protein, Total 6.3 g/dL (5.8-8.1); Sodium 135 mmol/L (136-145)
[2020-10-25 07:26] LABS: Free T4 (Free Thyroxine) 1.18 ng/dL (0.70-1.48); Thyroid Stimulating Hormone 3.2927 uIU/mL (0.35-4.94)
[2020-10-25 07:27] LABS: Band 1 % (5-11); Hemoglobin 12.7 g/dL (12.0-16.0); Lymphocytes 20 % (21-51); MDiff Complete? YES; Mean Corpuscular HGB CONC 32.7 g/dL (32.0-36.0); Mean Corpuscular Hemoglobin 28.3 pg (27.0-31.0); Mean Corpuscular Volume 86.5 fL (78.0-98.0); Mean Platelet Volume 7.2 fL (7.4-10.4); Monocytes 9 % (0-10); Neutrophil 70 % (42-75); Platelet Count 345 thou/uL (130-400); RBC Distribution Width 13.5 % (11.5-14.5); RBC Morphology Normal; Red Blood Cell (RBC) Count 4.51 mill/uL (4.20-5.40); White Blood Cell (WBC) Count 14.2 thou/uL (4.8-10.8)
[2020-10-25] MEDS: Losartan 25 MG TAB PO SCH (08:53)
[2020-10-25] MEDS: Zinc Sulfate 220 MG CAP PO SCH (08:53)
[2020-10-25] MEDS: Ascorbic Acid 500 mg Chewable Tablet PO SCH (08:53)
[2020-10-25] MEDS: Labetalol 100 MG TAB PO SCH ×2 (08:54→20:32)
[2020-10-25] MEDS: NIFEdipine XL 60 MG TAB PO SCH (08:54)
[2020-10-25] MEDS: Cholecalciferol (Vitamin D3) 400 UNITS TAB PO SCH (08:54)
[2020-10-25] MEDS: Dexamethasone Sod Phosphate 8 MG in Sodium Chloride 0.9% 50 ML IVPB SCH (08:56)
[2020-10-25] MEDS: Enoxaparin Sodium 40 MG/0.4 ML SYRINGE SC SCH (08:56)
[2020-10-25] MEDS ORDERED: Sodium Bicarbonate Tab 325 MG TAB PO SCH (09:00)
[2020-10-25] MEDS ORDERED: Sodium Chloride 0.9% 250 ML IV SCH (10:15)
[2020-10-25] MEDS: Zolpidem Tartrate 5 MG TAB PO PRN (20:32)
[2020-10-26] MEDS: Acetaminophen 325 MG/10.15 ML UDCUP PO PRN ×2 (05:48→21:40)
[2020-10-26 06:43] LABS: ALT (SGPT) 71 U/L (8-55); AST (SGOT) 34 U/L (5-34); Albumin 3.3 g/dL (3.4-4.8); Alkaline Phosphatase 88 U/L (40-110); Anion Gap 11 mmol/L (10-20); BUN (Urea Nitrogen) 23 mg/dL (9.8-20.1); Bilirubin, Total 0.6 mg/dL (0.2-1.2); Calc. Creatinine Clearance 100 mL/min (70-130); Calcium 8.4 mg/dL (7.8-10.44); Carbon Dioxide 21 mmol/L (23-31); Chloride 109 mmol/L (98-107); Globulin 2.5 g/dL (2.4-3.5); Glucose 114 mg/dL (80-115); Protein, Total 5.8 g/dL (5.8-8.1); Sodium 137 mmol/L (136-145)
[2020-10-26 07:18] LABS: Band 1 % (5-11); Hemoglobin 12.1 g/dL (12.0-16.0); Lymphocytes 22 % (21-51); MDiff Complete? YES; Mean Corpuscular HGB CONC 33.3 g/dL (32.0-36.0); Mean Corpuscular Hemoglobin 28.8 pg (27.0-31.0); Mean Corpuscular Volume 86.5 fL (78.0-98.0); Mean Platelet Volume 7.4 fL (7.4-10.4); Monocytes 11 % (0-10); Neutrophil 66 % (42-75); Platelet Count 273 thou/uL (130-400); Platelet Morphology Comment Appears Adequate; RBC Distribution Width 13.8 % (11.5-14.5); RBC Morphology Normal; Red Blood Cell (RBC) Count 4.22 mill/uL (4.20-5.40); White Blood Cell (WBC) Count 11.8 thou/uL (4.8-10.8)
[2020-10-26] MEDS: Enoxaparin Sodium 40 MG/0.4 ML SYRINGE SC SCH (08:58)
[2020-10-26] MEDS: Cholecalciferol (Vitamin D3) 400 UNITS TAB PO SCH (08:58)
[2020-10-26] MEDS: Ascorbic Acid 500 mg Chewable Tablet PO SCH (08:59)
[2020-10-26] MEDS: Losartan 25 MG TAB PO SCH (08:59)
[2020-10-26] MEDS: Zinc Sulfate 220 MG CAP PO SCH (08:59)
[2020-10-26] MEDS: Labetalol 100 MG TAB PO SCH ×2 (08:59→20:12)
[2020-10-26] MEDS: NIFEdipine XL 60 MG TAB PO SCH (08:59)
[2020-10-26] MEDS: Zolpidem Tartrate 5 MG TAB PO PRN (20:12)
[2020-10-27] MEDS: NIFEdipine XL 60 MG TAB PO SCH (08:46)
[2020-10-27] MEDS: Labetalol 100 MG TAB PO SCH ×2 (08:46→20:25)
[2020-10-27] MEDS: Zinc Sulfate 220 MG CAP PO SCH (08:46)
[2020-10-27] MEDS: Cholecalciferol (Vitamin D3) 400 UNITS TAB PO SCH (08:46)
[2020-10-27] MEDS: Ascorbic Acid 500 mg Chewable Tablet PO SCH (08:46)
[2020-10-27] MEDS: Losartan 25 MG TAB PO SCH (08:46)
[2020-10-27] MEDS: Enoxaparin Sodium 40 MG/0.4 ML SYRINGE SC SCH (08:47)
[2020-10-27 11:34] VITALS: BMI 38.0
[2020-10-27] MEDS: Zolpidem Tartrate 5 MG TAB PO PRN (20:55)
[2020-10-28 08:27] VITALS: TEMP 98.2
[2020-10-28] MEDS: NIFEdipine XL 60 MG TAB PO SCH (09:00)
[2020-10-28] MEDS: Cholecalciferol (Vitamin D3) 400 UNITS TAB PO SCH (09:00)
[2020-10-28] MEDS: Labetalol 100 MG TAB PO SCH (09:01)
[2020-10-28] MEDS: Losartan 25 MG TAB PO SCH (09:01)
[2020-10-28] MEDS: Ascorbic Acid 500 mg Chewable Tablet PO SCH (09:01)
[2020-10-28] MEDS: Enoxaparin Sodium 40 MG/0.4 ML SYRINGE SC SCH (09:02)
[2020-10-28] MEDS: Zinc Sulfate 220 MG CAP PO SCH (09:02)
[2020-10-28 15:23] VITALS: BP 148/72
== END 2020-10-28 16:54 | disposition home health service (06) | DRG 177 ==
LOC: ERS 12:48 → OBSVTOIN 17:11 → ERHOLD 17:11 → IMCU/EMU 21:54 → T4-A 10-15 17:11
PROVIDERS: ADMIT Family Medicine; ATTEND Internal Medicine
PROC: 8E0ZXY6 Isolation (ICD-10-PCS; principal; 2020-10-13)
DX: U07.1 COVID-19 (principal); J12.82 Pneumonia due to coronavirus disease 2019; J96.01 Acute respiratory failure with hypoxia; G93.41 Metabolic encephalopathy; E22.2 Syndrome of inappropriate secretion of antidiuretic hormone; I10 Essential (primary) hypertension; N32.81 Overactive bladder; F41.9 Anxiety disorder, unspecified; E87.6 Hypokalemia; G47.00 Insomnia, unspecified; F32.9 Major depressive disorder, single episode, unspecified; T50.2X5A Adverse effect of carbonic-anhydrase inhibitors, benzothiadiazides and other diuretics, initial encounter; I16.0 Hypertensive urgency; R44.1 Visual hallucinations; Z88.8 Allergy status to other drugs, medicaments and biological substances; Z79.899 Other long term (current) drug therapy; Z79.51 Long term (current) use of inhaled steroids; Z79.82 Long term (current) use of aspirin; Z98.890 Other specified postprocedural states; Z85.828 Personal history of other malignant neoplasm of skin; Z82.49 Family history of ischemic heart disease and other diseases of the circulatory system; Z68.38 Body mass index [BMI] 38.0-38.9, adult; E66.9 Obesity, unspecified
CPT/HCPCS: 0240U; 36415; 36416; 70450; 70551; 71045; 76705; 80053; 81001; 83735; 83880; 83930; 83935; 84100; 84145; 84300; 84439; 84443; 84481; 84484; 85007; 85025; 85027; 85379; 87040; 87070; 87205; 93005; 93010; 96374; C9113; G0378; J0360; J0456; J0696; J1100; J1650; J3480; J3490; J7050; J7131; S0028

== ENCOUNTER 2021-01-27 15:00 | Outpatient (CLI) | payer MEDICARE | END 2021-01-27 15:01 | disposition home or self-care (01) | LOC: BICMAMMO 15:00 | PROVIDERS: ATTEND Family Medicine | DX: N63.11 Unspecified lump in the right breast, upper outer quadrant (principal); N63.12 Unspecified lump in the right breast, upper inner quadrant | CPT/HCPCS: 76642; 77066; G0279 ==

== ENCOUNTER 2021-09-15 08:04 | Emergency (ER) | payer MEDICARE ==
[2021-09-15] MEDS ORDERED: Acetaminophen 500 MG TAB ONE (08:52)
== END 2021-09-15 09:42 | disposition home or self-care (01) ==
LOC: ERS 08:04
DX: M25.511 Pain in right shoulder (principal); M25.571 Pain in right ankle and joints of right foot; W22.8XXA Striking against or struck by other objects, initial encounter; I10 Essential (primary) hypertension; Z79.899 Other long term (current) drug therapy

== ENCOUNTER 2022-04-12 10:07 | Outpatient (CLI) | payer OTHER | END 2022-04-12 10:08 | disposition home or self-care (01) | LOC: BICMAMMO 10:07 | PROVIDERS: ATTEND Family Medicine | DX: Z13.820 Encounter for screening for osteoporosis (principal); Z78.0 Asymptomatic menopausal state | CPT/HCPCS: 77080 ==

== ENCOUNTER 2023-05-22 14:46 | Outpatient (CLI) | payer OTHER | END 2023-05-22 14:47 | disposition home or self-care (01) | LOC: BICMAMMO 14:46 | PROVIDERS: ATTEND Family Medicine | DX: Z12.31 Encounter for screening mammogram for malignant neoplasm of breast (principal); Z80.3 Family history of malignant neoplasm of breast | CPT/HCPCS: 77063; 77067 ==